=== PATIENT | female | born 1945 | race Caucasian/White ===

== ENCOUNTER 2023-04-03 13:29 | Emergency (ER) | payer OTHER ==
[~2023-04-03] VITALS: Ht 160 cm; Wt 56.2 kg
[2023-04-03 14:34] LABS: BASO # 0.2 10*3/uL (0.0-0.1); BASO % 1.7 % (0.0-1.0); EOS # 0.2 10*3/uL (0.0-0.4); EOS % 2.5 % (1.0-4.0); LYMPH # 1.2 10*3/uL (1.3-4.4); LYMPH % 12.7 % (27.0-41.0); MEAN CELL VOLUME 84.7 fl (81.0-99.0); MEAN CORPUSCULAR HGB 27.8 pg (27.0-31.0); MEAN CORPUSCULAR HGB CONC 32.9 g/dl (33.0-37.0); MEAN PLATELET VOLUME 8.6 fl (9.6-12.3); MONO # 0.4 10*3/uL (0.1-1.0); MONO % 4.2 % (3.0-9.0); NEUT # 7.5 10*3/uL (2.3-7.9); NEUT % 78.5 % (47.0-73.0); PLATELET COUNT AUTOMATED 333 10*3/uL (130-400); RED BLOOD COUNT 4.13 10*6/uL (4.10-5.10); RED CELL DISTRI WIDTH 13.8 % (0-14.5); WHITE BLOOD COUNT 9.5 10*3/uL (4.8-10.8)
[2023-04-03 14:57] LABS: ALKALINE PHOSPHATASE 79 U/L (46-116); BUN 21 mg/dl (9-23); CHLORIDE 103 mmol/L (98-107); LIPASE 25 U/L (12-53); SGPT/ALT 14 U/L (10-49)
[2023-04-03 16:08] LABS: BILIRUBIN Negative (Negative); BLOOD Negative (Negative); CLARITY Clear (Clear); COLOR Yellow (Yellow); GLUCOSE Trace (Negative); KETONE Negative (Negative); LEUKO ESTERASE Trace (Negative); NITRITE Negative (Negative); PH 5.5 (4.5-8.0); UROBILINOGEN 0.2 E.U./dl (0.0-1.0)
[2023-04-03 16:23] LABS: BACTERIA 1+
== END 2023-04-03 16:31 | disposition home or self-care (01) ==
LOC: ED 13:29
PROVIDERS: Physician Assistant Medical
DX: K52.1 Toxic gastroenteritis and colitis (principal); T36.1X5A Adverse effect of cephalosporins and other beta-lactam antibiotics, initial encounter; E11.9 Type 2 diabetes mellitus without complications; J45.909 Unspecified asthma, uncomplicated; Z91.041 Radiographic dye allergy status; Y92.89 Other specified places as the place of occurrence of the external cause